=== PATIENT | female | born 1995 | race Caucasian/White ===

== ENCOUNTER → 2018-07-08 | Outpatient (CLI) | payer OTHER | END | disposition home or self-care (01) | LOC: MAMO-SONO 14:15 → SONOGRAMA 14:23 | DX: Z34.80 Encounter for supervision of other normal pregnancy, unspecified trimester (principal) ==

== ENCOUNTER 2018-10-15 19:22 | Outpatient (CLI) | payer OTHER | END 2018-10-16 12:30 | disposition home or self-care (01) | LOC: OBS/DEL 19:22 | DX: O47.03 False labor before 37 completed weeks of gestation, third trimester (principal); Z34.03 Encounter for supervision of normal first pregnancy, third trimester ==

== ENCOUNTER 2018-10-23 08:45 | Inpatient (IN) | payer OTHER ==
[~2018-10-23] VITALS: Ht 157.5 cm; Wt 63.5 kg
[2018-10-24] MEDS ORDERED: IRON18 MG PO (22:25)
[2018-10-24] MEDS ORDERED: PRENATABS RX T1 EACH PO (22:25)
== END 2018-10-27 14:55 | DRG 807 ==
LOC: LDR 10-25 07:53 → OB/GYN 10-25 12:37 → LDR 11-12 08:45
PROC: 10E0XZZ Delivery of Products of Conception, External Approach (ICD-10-PCS; principal; 2018-10-25)
PROC: 0HQ9XZZ Repair Perineum Skin, External Approach (ICD-10-PCS; 2018-10-25)
PROC: 3E033VJ Introduction of Other Hormone into Peripheral Vein, Percutaneous Approach (ICD-10-PCS; 2018-10-25)
PROC: 4A1HXCZ Monitoring of Products of Conception, Cardiac Rate, External Approach (ICD-10-PCS; 2018-10-25)
DX: O70.0 First degree perineal laceration during delivery (principal); Z37.0 Single live birth; Z3A.37 37 weeks gestation of pregnancy

== ENCOUNTER 2018-10-24 21:45 | Outpatient (CLI) | payer OTHER ==
[2018-10-24] MEDS ORDERED: IRON18 MG PO (22:25)
[2018-10-24] MEDS ORDERED: PRENATABS RX T1 EACH PO (22:25)
== END 2018-10-25 08:42 | disposition still patient (30) ==
LOC: LDR 21:45 → OBS/DEL 21:45 → LDR 21:46 → OBS/DEL 10-25 08:42
DX: O47.1 False labor at or after 37 completed weeks of gestation (principal); Z34.83 Encounter for supervision of other normal pregnancy, third trimester

== ENCOUNTER 2019-11-08 15:24 | Emergency (ER) | payer OTHER ==
[~2019-11-08] VITALS: Ht 157.5 cm; Wt 47.6 kg
[~2019-11-08 15:24] MED LIST: IRON18 MG PO; PRENATABS RX T1 EACH PO
== END 2019-11-08 20:43 | disposition home or self-care (01) ==
LOC: ER 15:24
DX: O46.8X1 Other antepartum hemorrhage, first trimester (principal)

== ENCOUNTER 2020-09-12 22:42 | Inpatient (IN) | payer OTHER ==
[~2020-09-12] VITALS: Ht 157.5 cm; Wt 66.7 kg
== END 2020-09-15 14:44 | disposition home or self-care (01) | DRG 807 ==
LOC: LDR 22:42 → SURG-SUITE 09-13 15:36 → OB/GYN 09-15 10:03 → SURG-SUITE 09-15 14:44
PROVIDERS: ADMIT Specialist; ATTEND Specialist
PROC: 10E0XZZ Delivery of Products of Conception, External Approach (ICD-10-PCS; principal; 2020-09-13)
PROC: 0HQ9XZZ Repair Perineum Skin, External Approach (ICD-10-PCS; 2020-09-13)
PROC: 4A1HXFZ Monitoring of Products of Conception, Cardiac Rhythm, External Approach (ICD-10-PCS; 2020-09-13)
PROC: 3E033VJ Introduction of Other Hormone into Peripheral Vein, Percutaneous Approach (ICD-10-PCS; 2020-09-13)
DX: O70.0 First degree perineal laceration during delivery (principal); Z37.0 Single live birth; Z3A.36 36 weeks gestation of pregnancy; Z20.828 Contact with and (suspected) exposure to other viral communicable diseases; Z53.29 Procedure and treatment not carried out because of patient's decision for other reasons